=== PATIENT | male | born 1960 | race Caucasian/White ===

== ENCOUNTER 2018-12-02 14:01 | Emergency (ER) | payer SELFPAY ==
[~2018-12-02] VITALS: Ht 182.9 cm; Wt 90.7 kg
[2018-12-02] MEDS ORDERED: ONDANSETRON PF 4 MG/2 ML VIAL. IV ONE (15:30)
[2018-12-02] MEDS ORDERED: FAMOTIDINE 20 MG/2 ML VIAL IVP ONE (15:30)
[2018-12-02] MEDS ORDERED: fentaNYL PF VIAL 100 MCG/2 ML VIAL IV ONE (15:30)
[2018-12-02 15:41] LABS: BILIRUBIN,URINE NEGATIVE (NEG); CLARITY,URINE CLEAR; COLOR,URINE YELLOW; NITRITE,URINE NEGATIVE (NEG); PROTEIN,URINE NEGATIVE (NEG-TRACE); UROBILINOGEN,URINE 0.2 mg/dL (0.2 mg/dL)
[2018-12-02 15:46] LABS: BARBITURATES NEG (NEG); BENZODIAZEPINES NEG (NEG); CANNABINOIDS POS (NEG); COCAINE NEG (NEG); METHADONE NEG (NEG); OPIATES NEG (NEG); PHENCYCLIDINE NEG (NEG)
[2018-12-02 15:47] LABS: AMPHETAMINE/METHAMPHETAMINE NEG (NEG)
[2018-12-02 15:48] LABS: BACTERIA,URINE 0 /HPF (0-FEW); RBC,URINE 0 /HPF (0-2); SQUAMOUS EPITHELIAL CELL,UR OCC /LPF; WBC,URINE RARE /HPF (0-4)
--- NOTE | 2018-12-02 16:04 | PHYS DOC ---
Past Medical History Past Medical History: Diverticulosis, Other Additional Past Medical Histor: HS C-DIFF (YAIR BOUCHER LEXUS) Past Surgical History: Other Additional Past Surgical Histo: VENTRAL HERNIA (CITLALYYAIR ALBERTS) Alcohol Use: None Drug Use: Marijuana (CITLALYYAIR ALBERTS) Adult General Chief Complaint Chief Complaint: ABDOMINAL PAIN HPI HPI Patient is a 58 year old male with history of diverticulosis, smoking, who presents to the ED today complaining of 4 out of 10 sharp intermittent right sided abdominal pain with nausea no vomiting or diarrhea that began one and a half weeks ago. Patient denies any fever. Denies any urgency frequency dysuria. Denies anything exacerbating or relieving the pain. (CITLALYYAIR APRN) Review of Systems Review of Systems Constitutional: Denies fever or chills [] Eyes: Denies change in visual acuity, redness, or eye pain [] HENT: Denies nasal congestion or sore throat [] Respiratory: Denies cough or shortness of breath [] Cardiovascular: No additional information not addressed in HPI [] GI: Reports abdominal pain, nausea, denies vomiting, bloody stools or diarrhea [] : Denies dysuria or hematuria [] Musculoskeletal: Denies back pain or joint pain [] Integument: Denies rash or skin lesions [] Neurologic: Denies headache, focal weakness or sensory changes [] All other systems were reviewed and found to be within normal limits, except as documented in this note. (CITLALYYAIR APRN) Current Medications Current Medications Current Medications Medications (Trade) Dose Ordered Sig/Natalia Start Time Stop Time Status Last Admin Dose Admin Famotidine (Pepcid Vial) 20 mg 1X ONCE 12/02/18 15:30 12/02/18 15:40 DC 12/02/18 16:11 20 MG Fentanyl Citrate (Fentanyl 2ml Vial) 50 mcg 1X ONCE 12/02/18 15:30 12/02/18 15:40 DC 12/02/18 16:12 50 MCG Info (CONTRAST GIVEN -- Rx MONITORING) 1 each PRN DAILY PRN 12/02/18 17:00 12/02/18 21:09 DC Iohexol (Omnipaque 300 Mg/ml) 75 ml 1X ONCE 12/02/18 17:00 12/02/18 17:01 DC 12/02/18 17:00 75 ML Ondansetron HCl (Zofran) 4 mg 1X ONCE 12/02/18 15:30 12/02/18 15:40 DC 12/02/18 16:07 4 MG (SHAE WALLACE DO) Allergies Allergies Allergies Coded Allergies Type Severity Reaction Last Updated Verified Penicillins Allergy Intermediate PATIENT IS UNSURE, HE WAS A CHILD 12/02/18 Yes (SHAE WALLACE DO) Physical Exam Physical Exam Constitutional: Well developed, well nourished, no acute distress, non-toxic appearance. [] HENT: Normocephalic, atraumatic, bilateral external ears normal, oropharynx moist, no oral exudates, nose normal. [] Eyes: PERRLA, EOMI, conjunctiva normal, no discharge. [] Neck: Normal range of motion, no tenderness, supple, no stridor. [] Cardiovascular:Heart rate regular rhythm, no murmur [] Lungs & Thorax: Bilateral breath sounds clear to auscultation [] Abdomen: Old healed surgical incision noted at the umbilicus from ventral hernia repair. Bowel sounds normal, soft, slight epigastric tenderness as well as diffuse right-sided abdominal tenderness with negative Kirby sign, negative psoas sign, negative obturator sign, no masses, no pulsatile masses. [] Skin: Warm, dry, no erythema, no rash. [] Back: No tenderness, no CVA tenderness. [] Extremities: No tenderness, no cyanosis, no clubbing, ROM intact, no edema. [] Neurologic: Alert and oriented X 3, normal motor function, normal sensory function, no focal deficits noted. [] Psychologic: Affect normal, judgement normal, mood normal. [] (YAIR BOUCHER APRN) Current Patient Data Vital Signs Vital Signs Date Time Temp Pulse Resp B/P (MAP) Pulse Ox O2 Delivery O2 Flow Rate FiO2 12/02/18 17:04 62 142/75 (97) 98 12/02/18 16:12 24 Room Air 12/02/18 15:41 97.6 97.6 (SHAE WALLACE DO) Lab Values Laboratory Tests Test 12/02/18 15:12 12/02/18 16:05 Urine Collection Type Unknown Urine Color Yellow Urine Clarity Clear Urine pH 6.0 Urine Specific [place] 1.010 Urine Protein Negative mg/dL (NEG-TRACE) Urine Glucose (UA) Negative mg/dL (NEG) Urine Ketones (Stick) Negative mg/dL (NEG) Urine Blood Negative (NEG) Urine Nitrite Negative (NEG) Urine Bilirubin Negative (NEG) Urine Urobilinogen Dipstick 0.2 mg/dL (0.2 mg/dL) Urine Leukocyte Esterase Negative (NEG) Urine RBC 0 /HPF (0-2) Urine WBC Rare /HPF (0-4) Urine Squamous Epithelial Cells Occ /LPF Urine Bacteria 0 /HPF (0-FEW) Urine Opiates Screen Neg (NEG) Urine Methadone Screen Neg (NEG) Urine Barbiturates Neg (NEG) Urine Phencyclidine Screen Neg (NEG) Urine Amphetamine/Methamphetamine Neg (NEG) Urine Benzodiazepines Screen Neg (NEG) Urine Cocaine Screen Neg (NEG) Urine Cannabinoids Screen Pos (NEG) Urine Ethyl Alcohol Neg (NEG) White Blood Count 10.3 x10^3/uL (4.0-11.0) Red Blood Count 5.25 x10^6/uL (4.30-5.70) Hemoglobin 15.5 g/dL (13.0-17.5) Hematocrit 45.5 % (39.0-53.0) Mean Corpuscular Volume 87 fL (79-100) Mean Corpuscular Hemoglobin 30 pg (25-35) Mean Corpuscular Hemoglobin Concent 34 g/dL (31-37) Red Cell Distribution Width 14.8 % (11.5-14.5) H Platelet Count 273 x10^3/uL (140-400) Neutrophils (%) (Auto) 78 % (31-73) H Lymphocytes (%) (Auto) 14 % (24-48) L Monocytes (%) (Auto) 7 % (0-9) Eosinophils (%) (Auto) 1 % (0-3) Basophils (%) (Auto) 1 % (0-3) Neutrophils # (Auto) 8.0 x10^3/uL (1.8-7.7) H Lymphocytes # (Auto) 1.4 x10^3/uL (1.0-4.8) Monocytes # (Auto) 0.7 x10^3/uL (0.0-1.1) Eosinophils # (Auto) 0.1 x10^3/uL (0.0-0.7) Basophils # (Auto) 0.1 x10^3/uL (0.0-0.2) Sodium Level 141 mmol/L (136-145) Potassium Level 4.0 mmol/L (3.5-5.1) Chloride Level 105 mmol/L (98-107) Carbon Dioxide Level 27 mmol/L (21-32) Anion Gap 9 (6-14) Blood Urea Nitrogen 11 mg/dL (8-26) Creatinine 1.2 mg/dL (0.7-1.3) Estimated GFR (Cockcroft-Gault) 62.4 BUN/Creatinine Ratio 9 (6-20) Glucose Level 96 mg/dL (70-99) Calcium Level 9.1 mg/dL (8.5-10.1) Magnesium Level 2.1 mg/dL (1.8-2.4) Total Bilirubin 0.3 mg/dL (0.2-1.0) Aspartate Amino Transferase (AST) 12 U/L (15-37) L Alanine Aminotransferase (ALT) 22 U/L (16-63) Alkaline Phosphatase 70 U/L (46-116) Creatine Kinase 56 U/L (39-308) Creatine Kinase MB (Mass) 1.0 ng/mL (0.0-3.6) Creatine Kinase MB Relative Index % (0-4) Troponin I Quantitative < 0.017 ng/mL (0.000-0.055) HL-Fdq-Z-Type Natriuretic Peptide 51 pg/mL (0-124) Total Protein 7.0 g/dL (6.4-8.2) Albumin 3.5 g/dL (3.4-5.0) Albumin/Globulin Ratio 1.0 (1.0-1.7) Lipase 149 U/L (73-393) Thyroid Stimulating Hormone (TSH) 1.788 uIU/mL (0.358-3.74) Ethyl Alcohol Level < 10 mg/dL (0-10) Laboratory Tests 12/02/18 16:05 Laboratory Tests 12/02/18 16:05 (SHAE WALLACE DO) EKG EKG [address] Carter sinus rhythm Hr 62 no STEMI[] (YAIR BOUCHER APRN) Radiology/Procedures Radiology/Procedures []PROCEDURE: CT ABD PELV W/ IV CONTRST ONLY CT ABD PELV W/ IV CONTRST ONLY Indication: Abdominal pain, history of diverticulitis Technique: Postcontrast CT imaging was performed of the abdomen pelvis, multiplanar reconstruction images submitted. No oral contrast was given. One or more of the following individualized dose reduction techniques were utilized for this examination: 1. Automated exposure control 2. Adjustment of the mA and/or kV according to patient size 3. Use of iterative reconstruction technique. Comparison: None Findings: There is a very small, less than 0.2 cm left lower lobe pulmonary nodule image 3 series 2. No focal abnormality is identified liver, pancreas, spleen. Both kidneys enhance, no hydronephrosis. There is a hypodense lesion of the inferior right kidney about 0.9 cm, density measurements suggestive of cyst about 15 Hounsfield units. There is no adrenal nodularity. Accurate evaluation of bowel is limited without oral contrast. Bowel is not significantly dilated. There is no free fluid or free air. Normal appendix is visualized without adjacent inflammatory change. There is moderate to severe diverticulosis of the sigmoid colon and minimally of the descending colon not associated with significant adjacent inflammatory change. There is a small fat-containing umbilical hernia with no internal bowel, neck about 0.9 cm. Gallbladder is present without obvious intraluminal abnormality by CT. There is bilateral L5 spondylolysis, negligible anterior spondylolisthesis L5-S1. There is disc osteophyte complex and bulge at L5-S1 and broad posterior bulge/protrusion at L4-5. There is likely at least mild left lateral recess stenosis L4-5. There is moderate to severe right and [id number] left L5-S1 neural foramina compromise. There is minimal fat in the left inguinal canal, no bowel. IMPRESSION: 1. There is colonic diverticulosis greatest of the sigmoid colon without convincing evidence of diverticulitis. The is no CT evidence of acute appendicitis. 2. There is mild grade 1 anterior spondylolisthesis L5-S1 due to L5 spondylolysis. There is L5-S1 neural foramina compromise bilaterally greater on the right. There is also likely at least mild left lateral recess stenosis by bulge/protrusion at L4-5. 3. Small hypodense lesion of the inferior right kidney is probably a cyst. 4. Tiny less than 0.2 cm left lower lobe pulmonary nodule is less likely be of clinical significance. Optional 12 month follow-up could be performed if increased risk factors for neoplasm as per revised Fleischner guidelines, otherwise no additional follow-up needed if low risk factors. Electronically signed by: Edwardo Levi MD (12/02/2018 5:37 PM) [email or web address] DICTATED and SIGNED BY: EDWARDO LEVI MD DATE: 12/02/18 1737 (YAIR BOUCHER APRN) Course & Med Decision Making Course & Med Decision Making Pertinent Labs and Imaging studies reviewed. (See chart for details) This is a 58-year-old male patient presented to the ED today with complaints of nausea and abdominal pain for 1-1/2 weeks. CBC, CMP, troponin, lipase-no acute findings, EKG is negative, urine analysis is negative for infection CT of the abdomen and pelvic is negative for any acute findings, noted for diverticulosis. Patient is in no distress. Discharged to home. Follow-up with GI in the next 1-2 weeks. Also provided primary care doctor for follow-up. (YAIR BOUCHER APRN) Dragon Disclaimer Dragon Disclaimer This electronic medical record was generated, in whole or in part, using a voice recognition dictation system. (YAIR BOUCHER APRN) Departure Departure Impression: Primary Impression: Diverticulosis Disposition: HOME, SELF-CARE Condition: STABLE Referrals: NO PCP (PCP) NADER HUERTAS MD follow up in 1 week Patient Instructions: Diverticulosis Additional Instructions: You were evaluated in the emergency room and noted to have diverticulosis. Please follow-up with the accounts officer provided in the course of next week. Attending Signature Attending Signature I have reviewed the PA/FINANCE ANALYST's note and plan of care. I was available for consultation as needed during the patient's visit in the emergency department. I agree with the clinical impression, plan, and disposition. (SHAE WALLACE DO) YAIR BOUCHER APRN Dec 02, 2018 16:04 SHAE WALLACE DO Dec 03, 2018 04:44
[2018-12-02 16:29] LABS: BASO # 0.1 x10^3/uL (0.0-0.2); BASO % 1 % (0-3); EOS # 0.1 x10^3/uL (0.0-0.7); EOS % 1 % (0-3); HEMATOCRIT 45.5 % (39.0-53.0); HEMOGLOBIN 15.5 g/dL (13.0-17.5); LYMPH # 1.4 x10^3/uL (1.0-4.8); LYMPH % 14 % (24-48); MEAN CORPUSCULAR HEMOGLOBIN 30 pg (25-35); MEAN CORPUSCULAR HGB CONC 34 g/dL (31-37); MEAN CORPUSCULAR VOLUME 87 fL (79-100); MONO # 0.7 x10^3/uL (0.0-1.1); MONO % 7 % (0-9); NEUT % 78 % (31-73); PLATELET COUNT 273 x10^3/uL (140-400); RED BLOOD COUNT 5.25 x10^6/uL (4.30-5.70); RED CELL DISTRIBUTION WIDTH 14.8 % (11.5-14.5); WHITE BLOOD COUNT 10.3 x10^3/uL (4.0-11.0)
[2018-12-02 16:38] LABS: CALCIUM 9.1 mg/dL (8.5-10.1); CREATININE 1.2 mg/dL (0.7-1.3); GFR 62.4
[2018-12-02 16:43] LABS: ALBUMIN 3.5 g/dL (3.4-5.0); MAGNESIUM 2.1 mg/dL (1.8-2.4); TOTAL BILIRUBIN 0.3 mg/dL (0.2-1.0)
[2018-12-02 16:54] LABS: CREATINE KINASE 56 U/L (39-308)
[2018-12-02] MEDS ORDERED: IOHEXOL 300 MG/ML 100ML VIAL. IV ONE (17:00)
[2018-12-02] MEDS ORDERED: CONTRAST GIVEN. MC PRN (17:00)
[2018-12-02 17:04] VITALS: BP 142/75
--- NOTE | 2018-12-02 17:40 | RAD ---
CT ABD PELV W/ IV CONTRST ONLY Indication: Abdominal pain, history of diverticulitis Technique: Postcontrast CT imaging was performed of the abdomen pelvis, multiplanar reconstruction images submitted. No oral contrast was given. One or more of the following individualized dose reduction techniques were utilized for this examination: 1. Automated exposure control 2. Adjustment of the mA and/or kV according to patient size 3. Use of iterative reconstruction technique. Comparison: None Findings: There is a very small, less than 0.2 cm left lower lobe pulmonary nodule image 3 series 2. No focal abnormality is identified liver, pancreas, spleen. Both kidneys enhance, no hydronephrosis. There is a hypodense lesion of the inferior right kidney about 0.9 cm, density measurements suggestive of cyst about 15 Hounsfield units. There is no adrenal nodularity. Accurate evaluation of bowel is limited without oral contrast. Bowel is not significantly dilated. There is no free fluid or free air. Normal appendix is visualized without adjacent inflammatory change. There is moderate to severe diverticulosis of the sigmoid colon and minimally of the descending colon not associated with significant adjacent inflammatory change. There is a small fat-containing umbilical hernia with no internal bowel, neck about 0.9 cm. Gallbladder is present without obvious intraluminal abnormality by CT. There is bilateral L5 spondylolysis, negligible anterior spondylolisthesis L5-S1. There is disc osteophyte complex and bulge at L5-S1 and broad posterior bulge/protrusion at L4-5. There is likely at least mild left lateral recess stenosis L4-5. There is moderate to severe right and [id number] left L5-S1 neural foramina compromise. There is minimal fat in the left inguinal canal, no bowel. IMPRESSION: 1. There is colonic diverticulosis greatest of the sigmoid colon without convincing evidence of diverticulitis. The is no CT evidence of acute appendicitis. 2. There is mild grade 1 anterior spondylolisthesis L5-S1 due to L5 spondylolysis. There is L5-S1 neural foramina compromise bilaterally greater on the right. There is also likely at least mild left lateral recess stenosis by bulge/protrusion at L4-5. 3. Small hypodense lesion of the inferior right kidney is probably a cyst. 4. Tiny less than 0.2 cm left lower lobe pulmonary nodule is less likely be of clinical significance. Optional 12 month follow-up could be performed if increased risk factors for neoplasm as per revised Fleischner guidelines, otherwise no additional follow-up needed if low risk factors. Electronically signed by: Rome Grider MD (12/02/2018 5:37 PM) [email or web address]
--- NOTE | 2018-12-03 05:56 | EKG ---
[facility] [address] [place] [address] Test Date: 2018-12-02 Test Time: 15:41:42 Pat Name: TAY FOURNIER Department: Room: Gender: M Processing Analyst: : 1960 Requested By: YAIR BOUCHER Order Number: [id number] Reading MD: Measurements Intervals [place] Rate: 62 P: 62 AR: 146 QRS: 51 QRSD: 90 T: 20 QT: 382 QTc: 390 Interpretive Statements SINUS RHYTHM QRS(T) CONTOUR ABNORMALITY CONSIDER ANTEROSEPTAL MYOCARDIAL DAMAGE POSSIBLY ABNORMAL ECG RI6.01 No previous ECG available for comparison
== END 2018-12-02 19:40 | disposition home or self-care (01) ==
LOC: ER 14:01
DX: K57.30 Diverticulosis of large intestine without perforation or abscess without bleeding (principal); M43.17 Spondylolisthesis, lumbosacral region; Z98.890 Other specified postprocedural states; Z88.0 Allergy status to penicillin
CPT/HCPCS: 36415; 74177; 80053; 80307; 81001; 82553; 83690; 83735; 83880; 84443; 84484; 85025; 93005; 96374; 96375; 99285; G0480; J2405; J3010; J3490; Q9967